=== PATIENT | female | born 1975 | race Caucasian/White ===

== ENCOUNTER 2016-10-16 15:40 | Emergency (ER) | payer BC, MEDICAID ==
[~2016-10-16] VITALS: Ht 157.5 cm; Wt 73.0 kg
[~2016-10-16 15:40] MED LIST: Acetaminophen/Hydrocodone Bi PO; INFL60SU14 IMVAC
[2016-10-16 15:58] VITALS: BP 106/77
[2016-10-16] MEDS ORDERED: ONDANSETRON 4 MG ODT PO ONE ×2 (16:35→19:35)
[2016-10-16 17:13] LABS: BASOPHILS % (AUTO) 0.1 % (0.0-2.0); EOSINOPHILS # (AUTO) 0.2 K/uL (0-0.4); HEMATOCRIT 33.5 % (36-48); HEMOGLOBIN 10.2 g/dL (12.0-16.0); LYMPHOCYTES # (AUTO) 0.7 K/uL (2.5-16.5); LYMPHOCYTES % (AUTO) 9.1 % (20.5-51.1); MEAN CORPUSCULAR HEMOGLOBIN 22 pg (27-31); MEAN CORPUSCULAR HGB CONC 31 g/dL (33-37); MEAN CORPUSCULAR VOLUME 71 fL (80-94); MONOCYTES # (AUTO) 0.2 K/uL (0.8-1.0); NEUTROPHILS # (AUTO) 7.1 K/uL (1.8-7.7); NEUTROPHILS % (AUTO) 85.8 % (42.2-75.2); PLATELET COUNT (AUTO) 289 K/uL (140-450); RED BLOOD CELL COUNT(AUTO) 4.69 MIL/uL (4.20-5.40); WHITE BLOOD COUNT (AUTO) 8.2 K/uL (4.8-10.8)
[2016-10-16 17:24] LABS: CALCIUM 8.1 mg/dL (8.5-10.1); CARBON DIOXIDE 26.7 mmol/L (21-32); CREATININE 0.7 mg/dL (0.6-1.3); POTASSIUM 3.7 mmol/L (3.5-5.1)
[2016-10-16 17:24] LABS: APPEARANCE,URINE CLEAR (CLEAR); BILIRUBIN,URINE NEGATIVE (NEGATIVE); BLOOD, URINE TRACE-I (NEGATIVE); COLOR,URINE YELLOW (YELLOW); LEUKOCYTE ESTERASE ,URINE NEGATIVE (NEGATIVE); NITRITE, URINE NEGATIVE (NEGATIVE); PROTEIN,URINE NEGATIVE (NEGATIVE); UGLUCOSE NEGATIVE (NEGATIVE); UROBILINOGEN,URINE 0.2 EU/dL (0.2 - 1)
[2016-10-16 17:29] LABS: ALBUMIN 3.9 g/dL (3.4-5.0); TOTAL BILIRUBIN 0.4 mg/dL (0.0-1.0); TOTAL PROTEIN, SERUM 7.5 g/dL (6.4-8.2)
[2016-10-16 17:47] LABS: BACTERIA,URINE FEW /HPF (None Seen); RBC,URINE 0-5 (RARE) /HPF (0-5); SQUAMOUS EPITHELIAL CELL,UR FEW /LPF (0-3 (FEW)); WBC,URINE NONE SEEN /HPF (0-5)
--- NOTE | 2016-10-16 19:14 | NUR ---
Patient ambulated to bed 4 with family. RN evaluating patient at bedside.
--- NOTE | 2016-10-16 19:24 | NUR ---
PATIENT PRESENTS TO ED WITH ABD PAIN, NAUSEA AND VOMITTING . PT SKIN IS PINK/WARM/DRY; AAOX4 WITH EVEN AND STEADY GAIT; LUNGS CLEAR BL; HR EVEN AND REGULAR; PT DENIES ANY FEVER, CP, SOB, OR COUGH AT THIS TIME; PATIENT STATES PAIN OF 8/10 AT THIS TIME; VSS; PATIENT POSITIONED FOR COMFORT; HOB ELEVATED; BEDRAILS UP X2; BED DOWN. ER MD MADE AWARE OF PT STATUS.
[2016-10-16] MEDS ORDERED: ONDANSETRON 4 MG ODT ONE (19:43)
--- NOTE | 2016-10-16 19:54 | NUR ---
TO XRAY VIA WC IN STABLE CONDITION
--- NOTE | 2016-10-16 21:39 | NUR ---
Patient discharged with v/s stable. Written and verbal after care instructions given and explained. Patient alert, oriented and verbalized understanding of instructions. Ambulatory with steady gait. All questions addressed prior to discharge. ID band removed. Patient advised to follow up with PMD. Rx of ZOFRAN AND NORCO given. Patient educated on indication of medication including possible reaction and side effects. Opportunity to ask questions provided and answered.
[2016-10-16 21:47] VITALS: BP 125/80
== END 2016-10-16 21:47 | disposition home or self-care (01) ==
LOC: MED 15:40
DX: A08.4 Viral intestinal infection, unspecified (principal); Z90.710 Acquired absence of both cervix and uterus
CPT/HCPCS: 36415; 74020; 80053; 81001; 81025; 83690; 85025; 99285; S0119

== ENCOUNTER 2017-05-31 18:52 | Emergency (ER) | payer BC, MEDICAID ==
[~2017-05-31] VITALS: Ht 157.5 cm; Wt 72.6 kg
[2017-05-31 19:12] VITALS: BP 140/97
--- NOTE | 2017-05-31 21:09 | NUR ---
PT TAKEN TO OF
--- NOTE | 2017-05-31 21:12 | NUR ---
42 Y/O F W/C/O EPIGASTRIC PAIN, NAUSEA AND BLOOD IN VOMIT X TODAY, 1 EPISODE, AND HAS HAD BLACK STOOLS X 6MTHS. PT STATES VOMITTED BLOOD X 1 EPISODE 2 WKS AGO WELL. PT STATES HAS A HX OF ANEMIA AND TAKES IRON FOR IT. MED AH ANEMIA. NO OTHER S/S OF DISTRESS NOTED. ER MD MADE AWARE.
[2017-05-31] MEDS ORDERED: NACL 0.9% 1,000 ML IV SCH (21:36)
[2017-05-31] MEDS ORDERED: ONDANSETRON 4 MG/2 ML VIAL IVP ONE (21:40)
[2017-05-31] MEDS ORDERED: PANTOPRAZOLE 40 MG INJ VIAL IVP ONE (21:40)
[2017-05-31 22:15] LABS: BASOPHILS # (AUTO) 0.3 K/uL (0.00-0.22); EOSINOPHILS # (AUTO) 0.1 K/uL (0-0.4); HEMATOCRIT 42.1 % (36-48); HEMOGLOBIN 14.2 g/dL (12.0-16.0); LYMPHOCYTES # (AUTO) 2.4 K/uL (2.5-16.5); MEAN CORPUSCULAR HEMOGLOBIN 32 pg (27-31); MEAN CORPUSCULAR HGB CONC 34 g/dL (33-37); MEAN CORPUSCULAR VOLUME 94 fL (80-94); MONOCYTES # (AUTO) 0.6 K/uL (0.8-1.0); NEUTROPHILS # (AUTO) 4.7 K/uL (1.8-7.7); PLATELET COUNT (AUTO) 234 K/uL (140-450); RED CELL DISTRIBUTION WIDTH 11.9 % (11.6-13.7); WHITE BLOOD COUNT (AUTO) 8.1 K/uL (4.8-10.8)
--- NOTE | 2017-05-31 22:16 | NUR ---
PT MOVED TO BED 10
[2017-05-31 22:31] LABS: ANION GAP 9.7 (8-16); CARBON DIOXIDE 30.5 mmol/L (21-32); CREATININE 0.8 mg/dL (0.6-1.3); POTASSIUM 4.2 mmol/L (3.5-5.1)
[2017-05-31 22:33] LABS: PROTHROMBIN TIME 10.4 secs (10.8-13.4)
[2017-05-31 22:34] LABS: ALBUMIN 3.7 g/dL (3.4-5.0); TOTAL BILIRUBIN 0.2 mg/dL (0.0-1.0)
[2017-05-31 23:00] VITALS: BP 123/75
--- NOTE | 2017-05-31 23:00 | NUR ---
Patient discharged with v/s stable. Written and verbal after care instructions given and explained. Patient alert, oriented and verbalized understanding of instructions. Ambulatory with steady gait. All questions addressed prior to discharge. ID band removed. Patient advised to follow up with PMD IN 24 TO 48 HRS FOR GI REFERRAL OR RETURN TO ER IF CONDITION WORSENS. Rx of PROTONIX given. Patient educated on indication of medication including possible reaction and side effects. Opportunity to ask questions provided and answered.
== END 2017-05-31 23:00 | disposition home or self-care (01) ==
LOC: MED 18:52
DX: K29.70 Gastritis, unspecified, without bleeding (principal); K27.9 Peptic ulcer, site unspecified, unspecified as acute or chronic, without hemorrhage or perforation; Z79.899 Other long term (current) drug therapy
CPT/HCPCS: 36415; 71010; 80053; 85025; 85610; 85730; 93005; 96361; 96374; 96375; 99285; C9113; J2405; J7030

== ENCOUNTER 2020-06-04 10:04 | Emergency (ER) | payer BC, MEDICAID ==
[~2020-06-04] VITALS: Ht 154.9 cm; Wt 78.9 kg
[2020-06-04 10:22] VITALS: BP 116/70
--- NOTE | 2020-06-04 10:47 | NUR ---
45/F BIB FAMILY C/O COUGH, TRENT X6 DAYS.
--- NOTE | 2020-06-04 11:33 | NUR ---
COVID SWAB DONE.
[2020-06-04 12:12] VITALS: BP 116/70
--- NOTE | 2020-06-04 12:12 | NUR ---
Patient discharged with v/s stable. Written and verbal after care instructions given and explained. Patient verbalized understanding. Ambulatory with steady gait. All questions addressed prior to discharge. Advised to follow up with PMD.
== END 2020-06-04 12:12 | disposition home or self-care (01) ==
LOC: MED 10:04
DX: R05 Cough (principal); Z20.828 Contact with and (suspected) exposure to other viral communicable diseases; Z79.899 Other long term (current) drug therapy
CPT/HCPCS: 99283; U0003

== ENCOUNTER 2021-06-16 20:20 | Emergency (ER) | payer BC, MEDICAID ==
[~2021-06-16] VITALS: Ht 157.5 cm; Wt 77.1 kg
[2021-06-16 20:48] VITALS: BP 126/101
--- NOTE | 2021-06-16 21:40 | NUR ---
SANDY SWAB OBTAINED AND SENT TO LAB
[2021-06-16] MEDS ORDERED: ROBAC PO (22:23)
--- NOTE | 2021-06-16 22:47 | NUR ---
Patient discharged with v/s stable. Written and verbal after care instructions given and explained. Patient alert, oriented and verbalized understanding of instructions. Ambulatory with steady gait. All questions addressed prior to discharge. ID band removed. Patient advised to follow up with PMD. Rx of GUAIFENESIN given. Patient educated on indication of medication including possible reaction and side effects. Opportunity to ask questions provided and answered.
== END 2021-06-16 22:47 | disposition home or self-care (01) ==
LOC: MED 20:20
DX: J20.9 Acute bronchitis, unspecified (principal); Z20.822 Contact with and (suspected) exposure to COVID-19
CPT/HCPCS: 71045; 99284

== ENCOUNTER 2022-11-07 20:51 | Emergency (ER) | payer BC, MEDICAID ==
[~2022-11-07] VITALS: Ht 154.9 cm; Wt 78.9 kg
[~2022-11-07 20:51] MED LIST changes: +ROBAC PO
[2022-11-07 21:31] VITALS: BP 142/99
--- NOTE | 2022-11-07 21:40 | NUR ---
Pt triaged and placed in WR; No signs of acute distress. Covid swab collected and sent to lab.
--- NOTE | 2022-11-08 01:25 | NUR ---
PT CALLED BY DR. GAMBINO IN LOBBY AND OUTSIDE WITH NO ANSWER.
== END 2022-11-08 01:25 | disposition left against medical advice (07) ==
LOC: MED 20:51
DX: R05.9 Cough, unspecified (principal); R51.9 Headache, unspecified; M79.18 Myalgia, other site; Z53.21 Procedure and treatment not carried out due to patient leaving prior to being seen by health care provider
CPT/HCPCS: 99281